=== PATIENT | female | born 1945 | race Caucasian/White ===

== ENCOUNTER 2017-09-09 13:21 | Outpatient (CLI) | payer MEDICARE, OTHER ==
--- NOTE | 2017-09-09 14:31 | CT ---
NONCONTRAST HEAD CT: History: Chronic migraine. Comparison: None. Technique: Noncontrast head CT is performed from skull base to skull vertex. FINDINGS: No parenchymal hemorrhage. No extraaxial hematoma. No midline shift. Basilar cisterns are patent. Bra in volume is age appropriate. Cortical guerrero white matter differentiation is preserved. Ventricles and sulci are patent and symmetric. Calvarium is intact. Adequate aeration of the sinuses and mastoid air cells. Cavernous carotid atherosclerosis is noted. IMPRESSION: No acute intracranial process. POS: BRITTNEY
--- NOTE | 2017-09-12 10:26 | EEG ---
Referring Physician: DR. RENZO DEMARCO EEG # [id number] PROCEDURE: Outpatient electroencephalogram NAME OF PATIENT: Nilam Gabriel DATE EEG DONE: 09/09/2017 INDICATION: Memory disturbance, headaches. EEG CLASSIFICATION: Normal awake and drowsy. REPORT: This is a 22-channel digital EEG recording utilizing 10-20 international electrode placement system on a patient who presents with memory disturbance and headaches. During wakefulness, the background activity consists predominantly of low to moderate amplitude dominant alpha rhythm of 8 Hz. It is symmetric and reactive. This activity is penetrated occasionally by low amplitude fast beta activity and with myogenic activity representing frontalis and temporalis muscles bilaterally. DROWSINESS AND SLEEP: Subject able to attain periods of drowsiness with diffuse theta activity. There is no clear sleep recorded during this EEG. There is no consistent asymmetry or paroxysmal activity noted. INDUCTION: HYPERVENTILATION: With fair effort results in no significant change in the background activity. Patient complains of dizziness during hyperventilation, but no change on the EEG. PHOTIC STIMULATION: No photic drive seen. EK per minute. IMPRESSION: This EEG is considered normal awake and drowsy EEG. There is no clear epileptiform activity or focal abnormality noted. Clinical correlation recommended. Drop Crew Laborer: BENITO Loading Machine Operator Helper: EEG.[email or web address] MIGUEL NELSON
== END 2017-09-09 13:22 | disposition home or self-care (01) ==
LOC: CT 13:21
PROVIDERS: ATTEND Student in an Organized Health Care Education/Training Program
DX: G43.719 Chronic migraine without aura, intractable, without status migrainosus (principal); G25.2 Other specified forms of tremor; R41.3 Other amnesia
CPT/HCPCS: 70450; 95816

== ENCOUNTER 2018-01-31 11:51 | Day surgery (SDC) | payer MEDICARE ==
[2018-01-27 10:06] VITALS: BMI 25.4
[~2018-01-31 11:51] MED LIST: Dexamethasone 20 MG/5 ML VIAL ONE; Glycopyrrolate 0.2 MG/ML 5 ML SYRINGE ONE; Ketorolac Tromethamine 30 MG/ML VIAL ONE; Ondansetron HCl/PF 4 MG/2 ML Vial ONE; PHENYLEPHRINE-NS 100 MCG/ML 10 ML SYRINGE ONE; PROPOFOL 200 MG/20 ML VIAL ONE
[2018-01-31] MEDS ORDERED: Bupivacaine/Epinephrine 0.25% 30 ML VIAL ONE (12:24)
[2018-01-31] MEDS ORDERED: CEFAZOLIN/Water 2 GM/20 ML SYRINGE ONE (12:24)
[2018-01-31] MEDS ORDERED: Fentanyl 100 MCG/2 ML VIAL ONE (12:31)
[2018-01-31] MEDS ORDERED: Midazolam HCl 2 mg/2 ml Vial ONE (12:31)
[2018-01-31 12:39] LABS: #Eosinphils 0.1 thou/uL (0.0-0.7); #Lymphocytes 1.5 thou/uL (1.20-3.40); #Monocytes 0.6 thou/uL (0.11-0.59); #Neutrophils 2.1 thou/uL (1.40-6.50); %Basophils 0.7 % (0.0-1.0); %Eosinophils 1.5 % (0.0-10.0); %Lymphocytes 34.6 % (21.0-51.0); %Monocytes 13.6 % (0.0-10.0); %Neutrophils 49.6 % (42.0-75.0); Hemoglobin 13.3 g/dL (12.0-16.0); Mean Corpuscular HGB CONC 33.7 g/dL (32.0-36.0); Mean Corpuscular Hemoglobin 31.7 pg (27.0-31.0); Mean Corpuscular Volume 94.3 fl (81.0-99.0); Mean Platelet Volume 8.4 fL (7.4-10.4); Platelet Count 138 thou/uL (130-400); RBC Distribution Width 11.6 % (11.5-14.5); Red Blood Cell (RBC) Count 4.19 mill/uL (4.20-5.40); White Blood Cell (WBC) Count 4.2 thou/uL (4.8-10.8)
[2018-01-31 13:01] LABS: ALT (SGPT) 26 U/L (8-55); AST (SGOT) 20 U/L (5-34); Albumin 4.3 g/dL (3.4-4.8); Alkaline Phosphatase 81 U/L (40-150); Anion Gap 10 mmol/L (10-20); BUN (Urea Nitrogen) 19 mg/dL (9.8-20.1); Bilirubin, Total 0.5 mg/dL (0.2-1.2); Calc. Creatinine Clearance 62 mL/min (70-130); Calcium 9.8 mg/dL (7.8-10.44); Carbon Dioxide 25 mmol/L (23-31); Chloride 109 mmol/L (98-107); Estimated GFR-MDRD 77; Glucose 111 mg/dL (83-110); Protein, Total 7.3 g/dL (6.0-8.3); Sodium 140 mmol/L (136-145)
[2018-01-31] MEDS ORDERED: HYDROcodone/Acetaminophen 5/325 mg Tablet ONE (16:19)
--- NOTE | 2018-01-31 23:54 | EKG ---
Test Reason : PREOP Blood Pressure : / mmHG Vent. Rate : 080 BPM Atrial Rate : 080 BPM P-R Int : 138 ms QRS Dur : 074 ms QT Int : 384 ms P-R-T Axes : 046 -02 040 degrees QTc Int : 442 ms Normal sinus rhythm Normal ECG No previous ECGs available Confirmed by Anita LUQUE ([id number]) on 01/31/2018 11:54:12 PM Referred By: HUBER Confirmed By:Anita LUQUE
--- NOTE | 2018-02-01 13:37 | OP ---
DATE OF PROCEDURE: 01/31/2018 SURGEON: Laureano Humphrey M.D. PROCEDURE: Laparoscopic cholecystectomy. PREOPERATIVE DIAGNOSES: Cholelithiasis and cholecystitis. POSTOPERATIVE DIAGNOSES: Cholelithiasis and cholecystitis. HISTORY: Ms. Gabriel is a 73-year-old woman with cholelithiasis and cholecystitis by exam and history. She deferred her surgery due to family medical issues, but is now ready to proceed with a laparoscopic cholecystectomy. Her preoperative labs were normal and she does not have any bile duct dilatation on ultrasound. PROCEDURE: After informed consent was obtained and appropriate preoperative antibiotics were administered, the patient was taken to the operating room and placed in the supine position and general endotracheal anesthesia was administered. The stomach was decompressed with an OG tube and the abdomen was prepped and draped in standard sterile fashion. Local anesthesia was infused to the skin and subcutaneous tissues at the umbilical level. A transverse skin incision was made. The fascia was elevated and a Veress needle was placed into the abdominal cavity without difficulty. Opening pressure was less than 5 and carbon dioxide gas easily insufflated to an intra-abdominal pressure of 15, which the patient tolerated well. The Veress needle was withdrawn and a [place] port advanced under direct vision. The abdominal cavity was carefully examined. There was no evidence of Veress needle or of trocar injury. Local anesthesia was infused to the skin and subcutaneous tissues at the epigastric, right upper quadrant, and right lateral abdominal sites and trocars were placed under direct vision of the laparoscope. The fundus of the gallbladder was grasped and retracted superiorly. The infundibulum was grasped and retracted laterally. The serosa was stripped inferiorly at the level of the neck of the gallbladder exposing the cystic duct and artery which were traced clearly to their insertion in the gallbladder. Critical view of safety was obtained and the cystic duct and artery were clipped and divided between clips. The gallbladder was then dissected free of the gallbladder bed using hook electrocautery. Prior to complete removal of the gallbladder from the gallbladder bed, the area of the cystic duct and artery stumps was examined. The clips were in good position completely across these structures and there was no bleeding and no leakage of bile. The gallbladder was then placed into an EndoCatch bag and drawn out through the epigastric incision. The epigastric trocar was replaced and the operative site easily irrigated to clear. There was no significant bleeding or spillage of bile. The epigastric trocar was removed and the fascia closed under direct laparoscopic vision with a 0 Vicryl suture on a GraNee needle in a [id number] manner with excellent technical result. The right upper quadrant and right lateral abdominal trocars were removed and hemostasis verified. Carbon dioxide gas was allowed to desufflate through the umbilical trocar which was then removed. The skin incisions were closed with 4- 0 subcuticular Monocryl sutures and Dermabond dressings were placed. The patient was extubated and taken to the recovery room in good condition. There were no complications. ESTIMATED BLOOD LOSS: Minimal. SPECIMEN: Gallbladder and contents. MTDD
== END 2018-01-31 17:02 | disposition home or self-care (01) ==
LOC: SDC 11:51
PROVIDERS: ATTEND Surgery
PROC: 0FT44ZZ Resection of Gallbladder, Percutaneous Endoscopic Approach (ICD-10-PCS; principal; 2018-01-31)
DX: K81.1 Chronic cholecystitis (principal); E11.9 Type 2 diabetes mellitus without complications; E78.5 Hyperlipidemia, unspecified; I10 Essential (primary) hypertension; M81.0 Age-related osteoporosis without current pathological fracture; F51.04 Psychophysiologic insomnia; G89.29 Other chronic pain; R51 Headache; E55.9 Vitamin D deficiency, unspecified; Z79.52 Long term (current) use of systemic steroids; Z88.8 Allergy status to other drugs, medicaments and biological substances; Z79.84 Long term (current) use of oral hypoglycemic drugs; Z79.899 Other long term (current) drug therapy; Z98.890 Other specified postprocedural states
CPT/HCPCS: 36415; 36416; 80053; 85025; 88304; 93005; 93010; J1100; J1885; J2250; J2405; J2704; J3010